=== PATIENT | male | born 1980 | race African-American/Black ===

== ENCOUNTER 2017-11-26 02:23 | Emergency (ER) | payer SELFPAY ==
[~2017-11-26] VITALS: Ht 170.2 cm; Wt 75.0 kg
[2017-11-26 02:35] VITALS: BP 137/77
== END 2017-11-26 05:00 | disposition left against medical advice (07) ==
LOC: ER 02:49
DX: M25.571 Pain in right ankle and joints of right foot (principal); F17.200 Nicotine dependence, unspecified, uncomplicated; Z53.21 Procedure and treatment not carried out due to patient leaving prior to being seen by health care provider

== ENCOUNTER 2018-06-01 19:05 | Emergency (ER) | payer SELFPAY ==
[~2018-06-01] VITALS: Ht 170.2 cm; Wt 75.0 kg
[2018-06-01 20:00] VITALS: BP 148/77
== END 2018-06-01 20:00 | disposition home or self-care (01) ==
LOC: ER 19:05
DX: Z48.02 Encounter for removal of sutures (principal); R03.0 Elevated blood-pressure reading, without diagnosis of hypertension
CPT/HCPCS: 99281; Z7610

== ENCOUNTER 2018-07-06 00:07 | Emergency (ER) | payer SELFPAY ==
[~2018-07-06] VITALS: Ht 170.2 cm; Wt 73.3 kg
[2018-07-06 03:26] VITALS: BP 136/86
== END 2018-07-06 03:35 | disposition home or self-care (01) ==
LOC: ER 00:07
DX: B35.6 Tinea cruris (principal); J45.909 Unspecified asthma, uncomplicated; F12.10 Cannabis abuse, uncomplicated
CPT/HCPCS: 99282

== ENCOUNTER 2018-07-17 17:19 | Emergency (ER) | payer SELFPAY ==
[~2018-07-17] VITALS: Ht 170.2 cm; Wt 73.0 kg
[2018-07-17] MEDS ORDERED: SODIUM CHLORIDE 0.9% 1,000 ML IV ONE (23:55)
[2018-07-17] MEDS ORDERED: ONDANSETRON HCL 4MG/2ML INJ IV STA (23:55)
[2018-07-17] MEDS ORDERED: FAMOTIDINE 20MG/2ML VIAL IV STA (23:55)
[2018-07-17] MEDS ORDERED: MORPHINE SULFATE 4 MG/ML CPJ (NOT FOR IM USE) IV STA (23:55)
[2018-07-17] MEDS ORDERED: MAGNESIUM/ALUMINUM HYDROXIDE/SIMETHICONE 30ML UDC PO STA (23:55)
[2018-07-18 00:46] LABS: BASOPHILS % 0.2 % (0.0-2.0); EOSINOPHILS % 0.7 % (0.0-5.0); HEMATOCRIT. 44.1 % (42.0-52.0); HEMOGLOBIN. 14.7 g/dL (14.0-18.0); LYMPHOCYTES % 18.1 % (20.0-50.0); MEAN CORPUSCULAR HEMOGLOBIN 30.6 pg (28.0-32.0); MEAN CORPUSCULAR VOLUME 91.8 fL (80.0-94.0); MEAN PLATELET VOLUME 7.6 fl (7.4-10.4); MONOCYTES % 8.5 % (2.0-8.0); NEUTROPHILS % 72.5 % (40.0-76.0); PLATELET 294 x1000/uL (130-400); RED BLOOD CELL COUNT 4.81 mill/uL (4.7-6.1)
[2018-07-18 00:50] LABS: CHLORIDE 103 mEq/L (98-107)
[2018-07-18 00:54] LABS: ETHANOL BLOOD < 10 mg/dL
[2018-07-18 03:00] VITALS: BP 153/89
== END 2018-07-18 03:22 | disposition home or self-care (01) ==
LOC: ER 17:28
DX: K29.00 Acute gastritis without bleeding (principal); J45.909 Unspecified asthma, uncomplicated; F12.10 Cannabis abuse, uncomplicated
CPT/HCPCS: 36415; 74176; 80053; 83690; 83880; 84484; 85025; 96361; 96374; 96375; 99284; G0482; J2270; J2405; J3490; J7030

== ENCOUNTER 2018-07-19 00:32 | Emergency (ER) | payer SELFPAY ==
[~2018-07-19] VITALS: Ht 170.2 cm; Wt 74.0 kg
[2018-07-19 05:28] LABS: CLARITY URINE CLEAR (CLEAR); COLOR URINE YELLOW (YELLOW); KETONES URINE TRACE (NEGATIVE); LEUKOCYTE ESTERASE URINE NEGATIVE (NEGATIVE); NITRITE URINE NEGATIVE (NEGATIVE); OCCULT BLOOD URINE NEGATIVE (NEGATIVE); PH URINE 5.5 (4.5-8.0); PROTEIN URINE TRACE (NEGATIVE); SPECIFIC GRAVITY URINE 1.037 (1.005-1.030)
[2018-07-19 05:32] LABS: BASOPHILS % 0.3 % (0.0-2.0); EOSINOPHILS % 1.4 % (0.0-5.0); HEMATOCRIT. 36.8 % (42.0-52.0); HEMOGLOBIN. 12.5 g/dL (14.0-18.0); LYMPHOCYTES % 17.6 % (20.0-50.0); MEAN CORPUSCULAR HEMOGLOBIN 30.9 pg (28.0-32.0); MEAN PLATELET VOLUME 7.5 fl (7.4-10.4); MONOCYTES % 10.5 % (2.0-8.0); NEUTROPHILS % 70.2 % (40.0-76.0); PLATELET 265 x1000/uL (130-400); RED BLOOD CELL COUNT 4.04 mill/uL (4.7-6.1); RED CELL DISTRIBUTION WIDTH 13.7 % (11.6-14.6)
[2018-07-19 05:34] LABS: CHLORIDE 105 mEq/L (98-107)
[2018-07-19 05:41] LABS: INR 1.1; PROTHROMBIN TIME 10.7 sec (9.1-11.1)
[2018-07-19 05:42] LABS: ETHANOL BLOOD < 10 mg/dL
[2018-07-19 05:48] LABS: *AMPHETAMINES SCREEN URINE PRESUMTIVE POSITIVE (NEGATIVE); *BARBITURATES SCREEN URINE NEGATIVE (NEGATIVE); *BENZODIAZEPINES SCREEN URINE NEGATIVE (NEGATIVE); *COCAINE SCREEN URINE NEGATIVE (NEGATIVE); METHADONE URINE SCREEN NEGATIVE (NEGATIVE)
[2018-07-19 05:49] LABS: CANNABINOID URINE SCREEN PRESUMTIVE POSITIVE (NEGATIVE); OPIATES URINE SCREEN PRESUMTIVE POSITIVE (NEGATIVE); PHENCYCLIDINE URINE SCREEN NEGATIVE (NEGATIVE)
[2018-07-19 07:11] VITALS: BP 137/76
== END 2018-07-19 07:15 | disposition home or self-care (01) ==
LOC: ER 01:52
DX: R52 Pain, unspecified (principal); F12.10 Cannabis abuse, uncomplicated; F17.200 Nicotine dependence, unspecified, uncomplicated; J45.909 Unspecified asthma, uncomplicated
CPT/HCPCS: 36415; 80053; 80305; 81003; 83690; 85025; 85610; 99283; 99406; G0482

== ENCOUNTER 2018-11-27 03:37 | Emergency (ER) | payer MEDICAID ==
[~2018-11-27] VITALS: Ht 170.2 cm; Wt 74.0 kg
[2018-11-27 05:38] VITALS: BP 148/78
== END 2018-11-27 05:46 | disposition home or self-care (01) ==
LOC: ER 03:37
DX: L03.011 Cellulitis of right finger (principal); J45.909 Unspecified asthma, uncomplicated
CPT/HCPCS: 10060; 99283; Z7610

== ENCOUNTER 2019-05-25 01:07 | Emergency (ER) | payer MEDICAID ==
[~2019-05-25] VITALS: Ht 170.2 cm; Wt 72.0 kg
[2019-05-25] MEDS ORDERED: IBUPROFEN 600MG TABLET PO ONE (03:30)
[2019-05-25 03:52] VITALS: BP 123/76
== END 2019-05-25 03:53 | disposition home or self-care (01) ==
LOC: ER 01:07
DX: L73.8 Other specified follicular disorders (principal); J45.909 Unspecified asthma, uncomplicated; F17.200 Nicotine dependence, unspecified, uncomplicated
CPT/HCPCS: 99283